=== PATIENT | male | born 1945 | race Caucasian/White ===

== ENCOUNTER 2016-06-26 10:14 | Emergency (ER) | payer MEDICARE ==
[~2016-06-26] VITALS: Ht 165.1 cm; Wt 70.0 kg
[2016-06-26 10:16] VITALS: BP 174/94; PULSE 88; RESP 17; TEMP 98.2; O2SAT 95
[2016-06-26] MEDS ORDERED: PRIL20CA9 PO (13:17)
--- NOTE | 2016-06-26 13:22 | PD ---
HPI Chief Complaint: GI Complaint Time Seen by Provider: 13:08 Travel History International Travel<30 days: No Contact w/Intl Traveler<30days: No Traveled to known affect area: No History of Present Illness HPI This is a 70-year-old male who presents for evaluation. He reports that for 4 years he has had some dysphagia symptoms. He reports that sometimes when he swallows, particularly large food boluses, it feels like they get stuck in his upper abdomen and he sometimes regurgitates it. This primarily happens with solid foods such as meat products. He does not have this problem with more thinner watery type of foods. He reports that his girlfriend encouraged him to come for evaluation of this issue. He does also endorse an occasional bulging in the upper abdomen when he is bearing down. He is concerned that he may have a hernia. He denies any abdominal pain, nausea, chest pain or shortness of breath. He denies any acute problems. He has no primary care physician at this time. [facility] Past Medical History Medical History: Denies Significant Hx Social History Alcohol Use: Yes (DRINKS 8 BEERS PER MONTH.) Tobacco Use: No Substance Use: No Allergies-Medications (Allergen,Severity, Reaction): Coded Allergies: No Known Allergies (Unverified , 06/26/16) Reported Meds & Prescriptions Reported Meds & Active Scripts Active Review of Systems Except as stated in HPI: all other systems reviewed are Neg Physical Exam Narrative GENERAL: Well-developed well-nourished male in no acute distress SKIN: Warm and dry. HEAD: Atraumatic. Normocephalic. EYES: Pupils equal and round. No scleral icterus. No injection or drainage. ENT: No nasal bleeding or discharge. Mucous membranes pink and moist. NECK: Trachea midline. No JVD. CARDIOVASCULAR: Regular rate and rhythm. No murmur appreciated. RESPIRATORY: No accessory muscle use. Clear to auscultation. Breath sounds equal bilaterally. GASTROINTESTINAL: Abdomen soft, non-tender, nondistended. When the patient bears down there appears to be a bulging in the upper abdomen suggesting an abdominal wall hernia which is spontaneously reducing. MUSCULOSKELETAL: No obvious deformities. No edema NEUROLOGICAL: Awake and alert. No obvious cranial nerve deficits. Motor grossly within normal limits. Normal speech. PSYCHIATRIC: Appropriate mood and affect; insight and judgment normal. Data Data Last Documented VS Vital Signs Date Time Temp Pulse Resp B/P Pulse Ox O2 Delivery O2 Flow Rate FiO2 06/26/16 10:16 98.2 88 17 174/94 95 MDM Medical Decision Making Medical Screen Exam Complete: Yes Emergency Medical Condition: Yes Medical Record Reviewed: Yes Differential Diagnosis Esophageal web, stricture, carcinoma, hiatal hernia, abdominal wall hernia Narrative Course This is a 70-year-old male who for 4 years has been experiencing some difficulty swallowing large food boluses such as chunks of meat. Denies any acute problems. Physical examination is benign. He is currently able to swallow his secretions. He does appear to have a probable abdominal wall hernia that spontaneously reduces when he lies down. It is not incarcerated. No emergent workup is indicated at this time. He is encouraged to follow up with a primary care physician, gastric urologist as he will likely require outpatient endoscopy to further characterize this issue. He is also requesting a refill of his Prilosec. He is stable for discharge. Diagnosis Primary Impression: Dysphagia Qualified Code: R13.10 - Dysphagia, unspecified type Referrals: Lizzie Roque MD Primary Care Physician Additional Instructions: Follow-up with a primary care physician. Follow-up with a dessert cup machine feeder such as Dr. Roque. Cut your food into small pieces and chew very thoroughly prior to swallowing. Return for any emergent medical conditions. Med/Other Pt SpecificInfo: Prescription(s) given Scripts Omeprazole (Prilosec)20 Mg Cap20 Mg PO DAILY #30 CAP Ref 0 Prov:Orville Hood MD 06/26/16 Disposition: DISCHARGE HOME Condition: Stable Valentin Shaw Jun 26, 2016 13:22
[2016-06-26 13:39] VITALS: BP 168/78
== END 2016-06-26 13:50 | disposition home or self-care (01) ==
LOC: NETRI 10:14
DX: R13.10 Dysphagia, unspecified (principal)
CPT/HCPCS: 99283

== ENCOUNTER 2017-09-03 23:16 | Emergency (ER) | payer MEDICARE ==
[~2017-09-03] VITALS: Ht 175.3 cm; Wt 80.0 kg
[~2017-09-03 23:16] MED LIST: PRIL20CA9 PO
[2017-09-04 00:03] VITALS: BP 158/84; PULSE 98; RESP 18; TEMP 97.8; O2SAT 96
--- NOTE | 2017-09-04 00:49 | PD ---
HPI Chief Complaint: Complaint Time Seen by Provider: 00:28 Travel History International Travel<30 days: No Contact w/Intl Traveler<30days: No Traveled to known affect area: No History of Present Illness HPI The patient is a 72-year-old male who presents to the emergency department for inability to urinate. The patient states he was last able to urinate approximately 2 PM. He does complain of some abdominal distention and abdominal discomfort associated with the inability to urinate. He does have a history of nocturia, he gets up approximately 5-6 times nightly to urinate. However, he denies any known history of BPH. He denies any associated dysuria. He denies any fever, chills, sweats, nausea, vomiting, or upper abdominal pain. Symptoms are moderate. PFSH Past Medical History Medical History: Denies Significant Hx Tetanus Vaccination: Unknown Influenza Vaccination: Yes Past Surgical History Surgical History: No Previous Surgery Social History Alcohol Use: Yes Tobacco Use: No Substance Use: No Allergies-Medications (Allergen,Severity, Reaction): Coded Allergies: No Known Allergies (Unverified , 06/26/16) Reported Meds & Prescriptions Reported Meds & Active Scripts Active Prilosec (Omeprazole) 20 Mg Cap 20 Mg PO DAILY Review of Systems Except as stated in HPI: all other systems reviewed are Neg Cardiovascular: No: Chest Pain or Discomfort Respiratory: No: Shortness of Breath Gastrointestinal: No: Nausea, Vomiting, Abdominal Pain Genitourinary: Positive: Nocturia, Decreased Urinary Output, No: Dysuria, Pelvic Pain Skin: No Rash Physical Exam Narrative GENERAL: Awake, alert, pleasant 72-year-old male who appears his stated age and is in no acute respiratory distress. SKIN: Focused skin assessment warm/dry. HEAD: Atraumatic. Normocephalic. EYES: No injection or drainage. GASTROINTESTINAL: Abdomen soft, distended bladder to the umbilicus. Back: No CVA tenderness. MUSCULOSKELETAL: No obvious deformities. No clubbing. No cyanosis. No edema. NEUROLOGICAL: Awake and alert. No obvious cranial nerve deficits. Motor grossly within normal limits. Normal speech. PSYCHIATRIC: Appropriate mood and affect; insight and judgment normal. Data Data Last Documented VS Vital Signs Date Time Temp Pulse Resp B/P (MAP) Pulse Ox O2 Delivery O2 Flow Rate FiO2 09/04/17 00:03 97.8 98 18 158/84 (108) 96 Orders Orders Basic Metabolic Panel (Bmp) (09/04/17 00:28) Urinalysis - C+S If Indicated (09/04/17 00:28) Ed Poc Ultrasound (09/04/17 ) Urinary Catheter Insert/Apply (09/04/17 00:38) Bag, Leg 32oz Sterile Large Ea (09/04/17 00:49) Cath, Leg Strap Ea (09/04/17 00:49) Urine Culture (09/04/17 00:50) Ed Discharge Order (09/04/17 03:05) Tamsulosin (Flomax) (09/04/17 03:15) Labs Laboratory Tests Test 09/04/17 00:50 Urine Color YELLOW Urine Turbidity CLEAR Urine pH 5.0 Urine Specific Williams 1.012 Urine Protein NEG mg/dL Urine Glucose (UA) NEG mg/dL Urine Ketones 10 mg/dL Urine Occult Blood NEG Urine Nitrite NEG Urine Bilirubin NEG Urine Urobilinogen LESS THAN 2.0 MG/DL Urine Leukocyte Esterase NEG Urine RBC 1 /hpf Urine WBC 1 /hpf Urine Squamous Epithelial Cells <1 /hpf Urine Bacteria RARE /hpf Urine Hyaline Casts 3 /lpf Urine Mucus FEW /lpf Microscopic Urinalysis Comment CATH-CULTURE IND Blood Urea Nitrogen 12 MG/DL Creatinine 1.29 MG/DL Random Glucose 103 MG/DL Calcium Level 9.0 MG/DL Sodium Level 141 MEQ/L Potassium Level 4.0 MEQ/L Chloride Level 106 MEQ/L Carbon Dioxide Level 16.8 MEQ/L Anion Gap 18 MEQ/L Estimat Glomerular Filtration Rate 55 ML/MIN MDM Medical Decision Making Medical Screen Exam Complete: Yes Emergency Medical Condition: Yes Medical Record Reviewed: Yes Interpretation(s) Laboratory Tests Test 09/04/17 00:50 Urine Color YELLOW Urine Turbidity CLEAR Urine pH 5.0 Urine Specific Williams 1.012 Urine Protein NEG mg/dL Urine Glucose (UA) NEG mg/dL Urine Ketones 10 mg/dL Urine Occult Blood NEG Urine Nitrite NEG Urine Bilirubin NEG Urine Urobilinogen LESS THAN 2.0 MG/DL Urine Leukocyte Esterase NEG Urine RBC 1 /hpf Urine WBC 1 /hpf Urine Squamous Epithelial Cells <1 /hpf Urine Bacteria RARE /hpf Urine Hyaline Casts 3 /lpf Urine Mucus FEW /lpf Microscopic Urinalysis Comment CATH-CULTURE IND Blood Urea Nitrogen 12 MG/DL Creatinine 1.29 MG/DL Random Glucose 103 MG/DL Calcium Level 9.0 MG/DL Sodium Level 141 MEQ/L Potassium Level 4.0 MEQ/L Chloride Level 106 MEQ/L Carbon Dioxide Level 16.8 MEQ/L Anion Gap 18 MEQ/L Estimat Glomerular Filtration Rate 55 ML/MIN Differential Diagnosis Differential diagnosis includes urinary retention, BPH, acute kidney injury, acute renal failure, UTI, obstructive uropathy. Narrative Course A bedside ultrasound was performed which reveals enlarged bladder to the level of the umbilicus. Therefore, a Montez catheter was placed and hung to gravity. A BMP and UA were sent to lab. The patient's BUN and creatinine were within normal limits. UA is unremarkable. The patient had out over 800 cc of clear yellow urine. His symptoms improved. The patient was discharged home with a leg bag attached to the Montez catheter. He was administer Flomax 0.4 mg orally prior to discharge and will be placed on Flomax until he sees urology. Procedures Procedure Narrative A bedside ultrasound was performed using a curvilinear probe which reveals an enlarged bladder. The patient tolerated the procedure without difficulty and there was no obvious complications. Diagnosis Primary Impression: Urinary retention Referrals: Sage Graham MD call for appointment Patient Instructions: General Instructions Additional Instructions: Montez catheter and Flomax as directed. Follow-up with urology. Return if symptoms worsen or progress. Med/Other Pt SpecificInfo: Prescription(s) given Scripts Tamsulosin (Flomax) 0.4 Mg Cap 0.4 MG PO HS for Manage Prostate Problems, #10 CAP 0 Refills Prov: Michael Reed MD 09/04/17 Disposition: DISCHARGE HOME Condition: Stable Michael Reed MD Sep 04, 2017 00:49
[2017-09-04 00:59] LABS: BACTERIA, URINE RARE /hpf; BILIRUBIN, URINE NEG (NEG); BLOOD, URINE NEG (NEG); GLUCOSE,URINE NEG (NEG); HYALINE CAST, URINE 3 /lpf (RARE); KETONE, URINE 10 mg/dL (NEG); MUCUS URINE FEW /lpf (OCC); NITRITE,URINE NEG (NEG); SQUAMOUS EPITHELIAL CELL URINE <1 /hpf (0-5); URINE COLOR YELLOW (YELLW/STRAW); URINE LEUKOCYTE ESTERASE NEG (NEG)
[2017-09-04 01:15] LABS: BICARBONATE 16.8 MEQ/L (21.0-32.0); CREATININE 1.29 MG/DL (0.60-1.30)
[2017-09-04] MEDS ORDERED: TAMS5CAP PO (03:08)
[2017-09-04] MEDS ORDERED: TAMSULOSIN HCL 0.4 MG CAP PO ONE (03:15)
== END 2017-09-04 03:32 | disposition home or self-care (01) ==
LOC: NEPE 23:16
DX: R33.9 Retention of urine, unspecified (principal)
CPT/HCPCS: 51702; 80048; 81001; 87086

== ENCOUNTER 2018-01-27 12:13 | Inpatient (IN) ==
--- NOTE | 2018-01-27 12:32 | ED ---
HPI General Chief Complaint: Neuro Symptoms/Deficit Stated Complaint: cardiac/evac Time Seen by Provider: 01/27/18 12:22 Source: patient and EMS Mode of arrival: EMS Limitations: no limitations History of Present Illness HPI Narrative: Patient is a 72-year-old male presenting to the emergency department for evaluation of left-sided weakness. 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 Patient also feels that his speech is different. He denies any chest pain, shortness of breath, headache, dizziness, nausea, vomiting. He denies any significant past medical history. Symptom onset is unknown, symptoms are moderate. He further denies any visual changes. Onset (ago): hour(s) Time: 05:00 Location: Reports left face, left arm and left leg History of same: No Severity: moderate Quality: Reports weak Relieving factors: none Exacerbating factors: none Context: Reports other (woke up with symptoms) On Anticoagulants: No Associated symptoms: Reports denies other symptoms Treatments Prior to Arrival: Reports none Related Data Home Medications Medication Instructions Recorded Confirmed ranitidine HCl [Zantac] 150 mg PO DAILY 01/27/18 01/27/18 Allergies Allergy/AdvReac Type Severity Reaction Status Date / Time No Known Allergies Allergy Uncoded 06/26/16 13:16 Review of Systems ROS: all other systems reviewed are negative PMFSH Medical History Medical History Heartburn (Chronic) Social History Social History Substance History: No History of Abuse Second Hand Smoke Exposure: No Smoking Status: Never smoker How Often Do You Have a Drink Containing Alcohol: Never Exam Narrative Exam Narrative: GENERAL: Well-developed, well-nourished, alert elderly male. Presenting in no acute distress. SKIN: Focused skin assessment warm/dry. HEAD: Atraumatic. Normocephalic. EYES: Pupils equal and round. No scleral icterus. No injection or drainage. ENT: No nasal bleeding or discharge. Mucous membranes pink and moist. NECK: Trachea midline. No JVD. CARDIOVASCULAR: Regular rate and rhythm. No murmur appreciated. RESPIRATORY: No accessory muscle use. Clear to auscultation. Breath sounds equal bilaterally. GASTROINTESTINAL: Abdomen soft, non-tender, nondistended. Hepatic and splenic margins not palpable. MUSCULOSKELETAL: No obvious deformities. No clubbing. No cyanosis. No edema. NEUROLOGICAL: Awake and alert. Pronator drift noted on the left, slight facial droop on the left, 1 out of 5 waiter waitress strength on the left upper, 5 out of 5 on the right upper. 5 out of 5 strength in the right lower, 4 out of 5 on the left lower. PSYCHIATRIC: Appropriate mood and affect; insight and judgment normal. Course Initial Documented Vital Signs Pulse Oximetry 98 01/27/18 12:23 Last Documented Vital Signs Temperature 98.5 F 01/27/18 12:24 Pulse Rate 64 01/27/18 17:00 Respiratory Rate 18 01/27/18 17:00 Blood Pressure 178/84 H 01/27/18 17:00 Pulse Oximetry 98 01/27/18 17:00 NIH Stroke Scale NIH Stroke Scale Level of Consciousness: 0-Alert Orientation Questions: 0-Answers both correct Responds to Commands: 0-Both tasks correct Gaze Eye Movement: 0-Horizontal movement WNL Facial Movement: 1-Minor facial palsy Motor Functions Arm LEFT: 2-Falls before 10 seconds Motor Functions Arm RIGHT: 0-No drift Motor Functions Leg LEFT: 2-Falls before 5 seconds Motor Functions Leg RIGHT: 0-No drift Best Language: 0-Normal Articulation: 0-Normal Total: 5 Medical Decision Making MDM Narrative Medical decision making narrative: Patient presented with left-sided weakness that he woke up with a 5 AM this morning. Labs and imaging ordered and pending. Patient is hypertensive on arrival, he has no history of hypertension. Labs reviewed, no acute findings. Initial CT of the brain shows a right frontoparietal questionable hemorrhage no greater than 3 mm. Initially discussed findings with Dr. Yan, neurosurgery. He recommended MRI of the brain, sed and CRP. Possible abscess or tumor. MRI, MRA of the head and neck ordered. MRI resulted with an infarct in the right MCA. Reviewed by Dr. Yan. This was discussed with Dr. Barragan, neurology who recommended head of bed be laid flat and patient be given 325 mg of aspirin. Consult placed to neurology. Patient and were advised on findings. Patient has been resting comfortably. Patient will be admitted to [facility]. Dr. Hardin accepted admission. Orders placed. Medical Screen Exam Complete: Yes Emergency Medical Condition: Yes Differential Diagnosis Differential Diagnosis: CVA versus Oglesby's palsy versus metabolic abnormality versus cardiac arrhythmia versus other Medical Records Medical records reviewed: Yes I reviewed the patient's medical records. Lab Data Lab results reviewed: Yes I reviewed the patient's lab results. Result diagrams: 01/27/18 14:39 01/27/18 14:39 Lab Results 01/27/18 01/27/18 01/27/18 Range/Units 12:39 14:00 14:00 WBC (4.0-11.0) th/mm3 RBC (4.50-5.90) mil/mm3 Hgb (13.0-17.0) gm/dL Hct (39.0-51.0) % MCV (80.0-100.0) fL MCH (27.0-34.0) pg MCHC (32.0-36.0) % RDW (11.6-17.2) % Plt Count (150-450) th/mm3 MPV (7.0-11.0) fL Prelim Diff (Auto) Neut % (Auto) (16.0-70.0) % Lymph % (Auto) (9.0-44.0) % [place] % (Auto) (0.0-8.0) % Eos % (Auto) (0.0-4.0) % Baso % (Auto) (0.0-2.0) % Neut # (Auto) (1.8-7.7) th/mm3 Lymph # (Auto) (1.0-4.8) th/mm3 [place] # (Auto) (0.0-0.9) th/mm3 Eos # (Auto) (0.0-0.4) th/mm3 Baso # (Auto) (0.0-0.2) th/mm3 WBC Differential Diff Scan Differential Comment ESR 11 (0-20) mm/hr PT (9.8-11.6) sec INR Ratio APTT (24.3-30.1) sec Sodium (136-145) meq/L Potassium (3.5-5.1) meq/L Chloride (98-107) meq/L Carbon Dioxide (21.0-32.0) meq/L Anion Gap (5-15) meq/L BUN (7-18) mg/dL Creatinine (0.60-1.30) mg/dL Estimated GFR (>89) mL/min POC Glucose 122 H (68-110) mg/dl Random Glucose (74-106) mg/dL Calcium (8.5-10.1) mg/dL Total Bilirubin (0.2-1.0) mg/dL AST (15-37) U/L ALT (12-78) U/L Alkaline Phosphatase (45-117) U/L Total Creatine Kinase (39-308) U/L CK-MB (CK-2) (0.5-3.6) ng/mL Troponin I (0.02-0.05) ng/mL C-Reactive Protein Cancelled Total Protein (6.4-8.2) g/dL Albumin (3.4-5.0) g/dL 01/27/18 01/27/18 01/27/18 Range/Units 14:39 14:39 14:39 WBC 5.1 (4.0-11.0) th/mm3 RBC 4.39 L (4.50-5.90) mil/mm3 Hgb 14.4 (13.0-17.0) gm/dL Hct 41.5 (39.0-51.0) % MCV 94.5 (80.0-100.0) fL MCH 32.8 (27.0-34.0) pg MCHC 34.7 (32.0-36.0) % RDW 13.2 (11.6-17.2) % Plt Count 132 L (150-450) th/mm3 MPV 8.6 (7.0-11.0) fL Prelim Diff (Auto) Slide review pending Neut % (Auto) 68.3 (16.0-70.0) % Lymph % (Auto) 22.8 (9.0-44.0) % [place] % (Auto) 7.7 (0.0-8.0) % Eos % (Auto) 1.0 (0.0-4.0) % Baso % (Auto) 0.2 (0.0-2.0) % Neut # (Auto) 3.5 (1.8-7.7) th/mm3 Lymph # (Auto) 1.2 (1.0-4.8) th/mm3 [place] # (Auto) 0.4 (0.0-0.9) th/mm3 Eos # (Auto) 0.1 (0.0-0.4) th/mm3 Baso # (Auto) 0.0 (0.0-0.2) th/mm3 WBC Differential . Diff Scan Auto diff confirmed Differential Comment . ESR (0-20) mm/hr PT 10.5 (9.8-11.6) sec INR 1.0 Ratio APTT 22.4 L (24.3-30.1) sec Sodium 145 (136-145) meq/L Potassium 4.3 (3.5-5.1) meq/L Chloride 111 H (98-107) meq/L Carbon Dioxide 27.8 (21.0-32.0) meq/L Anion Gap 6 (5-15) meq/L BUN 10 (7-18) mg/dL Creatinine 1.24 (0.60-1.30) mg/dL Estimated GFR 57 L (>89) mL/min POC Glucose (68-110) mg/dl Random Glucose 87 (74-106) mg/dL Calcium 8.2 L (8.5-10.1) mg/dL Total Bilirubin 0.4 (0.2-1.0) mg/dL AST 30 (15-37) U/L ALT 32 (12-78) U/L Alkaline Phosphatase 135 H (45-117) U/L Total Creatine Kinase 155 (39-308) U/L CK-MB (CK-2) 1.9 (0.5-3.6) ng/mL Troponin I Less than 0.02 L (0.02-0.05) ng/mL C-Reactive Protein Less than 0.29 Total Protein 7.2 (6.4-8.2) g/dL Albumin 3.4 (3.4-5.0) g/dL Imaging Data Radiologist's impression: Chest X-Ray 01/27/18 12:23 CONCLUSION: No acute cardiopulmonary abnormality is identified. Head CT 01/27/18 12:23 CONCLUSION: Questionable 3 mm focal area of hemorrhage in the high right frontoparietal region, (best seen on image 27). Otherwise diffuse atrophy. Suggest follow-up noncontrasted CT in one day . Head MRI 01/27/18 14:20 CONCLUSION: 1. Linear infarct right MCA distribution as above without mass effect, hemorrhage or midline shift. 2. There is mild chronic white matter ischemic change. Head MRA 01/27/18 14:20 CONCLUSION: 1. 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 Neck MRA 01/27/18 14:20 CONCLUSION: 1. Mild plaque at the carotid bifurcations bilaterally with mild smooth narrowing at the carotid bulb. CTA carotids otherwise unremarkable. Both vertebral arteries are patent within the neck and similar size. Percent stenosis is calculated using the diameter of the stenotic region over the diameter of the normal distal internal carotid artery Cervical Spine MRI 01/27/18 15:26 CONCLUSION: 1. Degenerative disc disease at C5-6. No evidence of fracture or malalignment Discharge Plan Discharge Disposition Patient Disposition: 30 Still Patient Discharge Condition Condition: Critical Discharge Details Diagnosis: Acute CVA (cerebrovascular accident) Physicians Team ED Provider: Vazquez Abreu ED Midlevel Provider: Bonita Galeana Primary Care Provider: Sachin Russo Attending Provider: Nathaniel Hardin Other Providers: Flora Polanco Status ED Status: Admitted Patient
--- NOTE | 2018-01-27 12:43 | XR ---
EXAM DATE: 01/27/2018 12:35 PM EDT AGE/SEX: 72 years / Male INDICATIONS: Shortness of breath, left arm and face numbness. CLINICAL DATA: This is the patient's initial encounter. Patient reports that signs and symptoms have been present for 1 day and indicates a pain score of 0/10. MEDICAL/SURGICAL HISTORY: None. None. COMPARISON: No prior exams available for comparison. FINDINGS: Portable AP view of the chest demonstrates a normal-sized cardiac silhouette. No effusion, consolidat ion, or pneumothorax is identified. The bones and soft tissues demonstrate no acute finding. EKG line s overlie the patient. CONCLUSION: No acute cardiopulmonary abnormality is identified. Electronically signed by: Sachin Feliz MD 01/27/2018 12:42 PM EDT
--- NOTE | 2018-01-27 13:50 | CT ---
EXAM DATE: 01/27/2018 1:45 PM EDT AGE/SEX: 72 years / Male INDICATIONS: Left hand weakness CLINICAL DATA: This is the patient's initial encounter. Patient reports that signs and symptoms have been present for 1 day and indicates a pain score of 0/10. MEDICAL/SURGICAL HISTORY: None. None. RADIATION DOSE: 56.35 CTDI (mGy) COMPARISON: No prior exams available for comparison. TECHNIQUE: CT of the head without contrast. Using automated exposure control and adjustment of the mA and/or kV according to patient size, radiation dose was kept as low as reasonably achievable to ob tain optimal diagnostic quality images. DICOM format image data is available electronically for revi ew and comparison. FINDINGS: Cerebrum: On image #27 in the high right frontoparietal region there is a questionable small area of hemorrhage measuring no greater than 3 mm. May be volume averaging with the adjacent falx. There armendariz s appear to be some mild diffuse atrophy present diffusely. No subarachnoid or subdural hematoma is i dentified. Bone windows are negative. Posterior Fossa: The cerebellum and brainstem are intact. The 4th ventricle is midline. The cerebe llopontine angle is unremarkable. Extracranial: The visualized portion of the orbits is intact. Skull: The calvaria is intact. No evidence of skull fracture. Minimal maxillary sinus disease CONCLUSION: Questionable 3 mm focal area of hemorrhage in the high right frontoparietal region, (best seen on deirdre ge 27). Otherwise diffuse atrophy. Suggest follow-up noncontrasted CT in one day . Electronically signed by: Chad Renee MD 01/27/2018 1:48 PM EDT
[2018-01-27 15:44] LABS: Baso % (Auto) 0.2 % (0.0-2.0); Eos # (Auto) 0.1 th/mm3 (0.0-0.4); Hematocrit 41.5 % (39.0-51.0); Hemoglobin 14.4 gm/dL (13.0-17.0); Lymph # (Auto) 1.2 th/mm3 (1.0-4.8); Lymph % (Auto) 22.8 % (9.0-44.0); Mean Corpuscular HGB Conc 34.7 % (32.0-36.0); Mean Corpuscular Hemoglobin 32.8 pg (27.0-34.0); Mean Corpuscular Volume 94.5 fL (80.0-100.0); Mean Platelet Volume 8.6 fL (7.0-11.0); Mono # (Auto) 0.4 th/mm3 (0.0-0.9); Mono % (Auto) 7.7 % (0.0-8.0); Neut # (Auto) 3.5 th/mm3 (1.8-7.7); Neut % (Auto) 68.3 % (16.0-70.0); Platelet Count 132 th/mm3 (150-450); Red Blood Count 4.39 mil/mm3 (4.50-5.90); Red Cell Distribution Width 13.2 % (11.6-17.2); White Blood Count 5.1 th/mm3 (4.0-11.0)
[2018-01-27 15:54] LABS: Albumin 3.4 g/dL (3.4-5.0); Anion Gap 6 meq/L (5-15); Aspartate Aminotransferase 30 U/L (15-37); Blood Urea Nitrogen 10 mg/dL (7-18); Calcium 8.2 mg/dL (8.5-10.1); Carbon Dioxide 27.8 meq/L (21.0-32.0); Chloride 111 meq/L (98-107); Glomerular Filtration Rate 57 mL/min (>89); Glucose,Random 87 mg/dL (74-106); Sodium 145 meq/L (136-145)
[2018-01-27 15:55] LABS: Alanine Aminotransferase 32 U/L (12-78); Alkaline Phosphatase 135 U/L (45-117); Creatine Kinase 155 U/L (39-308); Total Protein 7.2 g/dL (6.4-8.2)
[2018-01-27 15:56] LABS: Activated Partial Thrombo Time 22.4 sec (24.3-30.1); Potassium 4.3 meq/L (3.5-5.1); Prothrombin Time 10.5 sec (9.8-11.6)
[2018-01-27 16:08] LABS: Creatine Kinase MB 1.9 ng/mL (0.5-3.6)
[2018-01-27] MEDS ORDERED: Gadobutrol PF 10 MMOL/10 ML Vial (for RAD) IV.SIG ONE (16:39)
--- NOTE | 2018-01-27 17:35 | MR ---
EXAM DATE: 01/27/2018 5:29 PM EDT AGE/SEX: 72 years / Male INDICATIONS: Weakness. Left facial numbness. Left arm tingling and weakness. CLINICAL DATA: This is the patient's initial encounter. Patient reports that signs and symptoms have been present for 1 day and indicates a pain score of 0/10. MEDICAL/SURGICAL HISTORY: None. None. COMPARISON: [facility], MRA NECK W CONTRAST, 01/27/2018. . TECHNIQUE: Multiplanar, multisequence MRI examination of the cervical spine was performed without an d with 10cc ml Gadavist (gadobutrol) contrast as a single exam dose. FINDINGS: Vertebrae: Normal vertebral body height. Homogeneous marrow signal. Intervertebral disc space narro wing at the C5-6 level Alignment: Normal. Cord: Normal configuration and signal. Post Fossa: The cerebellar tonsils are normal in position. Post Contrast: No abnormal areas of enhancement are seen. C2-C3: The thecal sac has a normal configuration. There is no evidence of disc herniation or spinal canal stenosis. The neural foramina are patent bilaterally. C3-C4: The thecal sac has a normal configuration. There is no evidence of disc herniation or spinal canal stenosis. The neural foramina are patent bilaterally. C4-C5: The thecal sac has a normal configuration. There is no evidence of disc herniation or spinal canal stenosis. The neural foramina are patent bilaterally. C5-C6: The thecal sac is slightly narrowed. There is a broad-based diffuse annular bulge without mas s effect upon the cord. The neural foramina are patent bilaterally. C6-C7: The thecal sac has a normal configuration. There is no evidence of disc herniation or spinal canal stenosis. The neural foramina are patent bilaterally. C7-T1: No epidural impressions seen. CONCLUSION: 1. Degenerative disc disease at C5-6. No evidence of fracture or malalignment Electronically signed by: Chad Renee MD 01/27/2018 5:34 PM EDT
--- NOTE | 2018-01-27 17:38 | MR ---
EXAM DATE: 01/27/2018 5:29 PM EDT AGE/SEX: 72 years / Male INDICATIONS: Left sided weakness. Left facial numbness. Left arm tingling and weakness. CLINICAL DATA: This is the patient's initial encounter. Patient reports that signs and symptoms have been present for 1 day and indicates a pain score of 0/10. MEDICAL/SURGICAL HISTORY: None. None. COMPARISON: No prior exams available for comparison. TECHNIQUE: Multiplanar, multisequence examination of the brain was performed without and with 10cc ml Gadavist (gadobutrol) contrast as a single exam dose. FINDINGS: There is a linear infarct in the right MCA distribution extending over a length of about 3.6 cm and s hort axis diameter of around 1 cm. This involves the motor cortex. There is no associated hemorrhage, mass effect or midline shift. No hydrocephalus. There are mild chronic appearing white matter ischemic changes. There is some cortical volume loss. No abnormal extra-axial fluid collections are noted small retention cyst right maxillary sinus. Postcontrast no abnormal enhancing lesions are identified. CONCLUSION: 1. Linear infarct right MCA distribution as above without mass effect, hemorrhage or midline shift. 2. There is mild chronic white matter ischemic change. Electronically signed by: Asa López MD 01/27/2018 5:37 PM EDT
--- NOTE | 2018-01-27 17:41 | MR ---
EXAM DATE: 01/27/2018 5:29 PM EDT AGE/SEX: 72 years / Male INDICATIONS: Left sided weakness. Left facial numbness. Left arm tingling and weakness. CLINICAL DATA: This is the patient's initial encounter. Patient reports that signs and symptoms have been present for 1 day and indicates a pain score of 0/10. MEDICAL/SURGICAL HISTORY: None. None. [place] [facility] [place]/27/[place]. . TECHNIQUE: 3D [id number] MRA was performed. Source images, multiplanar STS MIP, and 3D volum e MIP reconstructions were reviewed. FINDINGS: There is excellent visualization of the major intracranial arteries out to the second-order branch ve ssels. There is no evidence for aneurysm, and no evidence for vascular malformation. There is marked narrowing of suspect on a congenital basis involving the distal right vertebral arter y. The left vertebral artery is dominant. There is a left posterior communicating artery which supplies majority of the flow to the left assistant secretary ior cerebral circulation. No aneurysm is identified. The middle cerebral arteries are symmetric. The A1 segment on the left is not identified. CONCLUSION: 1. 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 Electronically signed by: Chad Renee MD 01/27/2018 5:39 PM EDT
--- NOTE | 2018-01-27 17:42 | MR ---
EXAM DATE: 01/27/2018 5:29 PM EDT AGE/SEX: 72 years / Male INDICATIONS: Weakness. Left facial numbness. Left arm tingling and weakness. CLINICAL DATA: This is the patient's initial encounter. Patient reports that signs and symptoms have been present for 1 day and indicates a pain score of 0/10. MEDICAL/SURGICAL HISTORY: None. None. COMPARISON: No prior exams available for comparison. TECHNIQUE: 10cc ml Gadavist (gadobutrol) contrast infused MRA (single exam dose) of the extracrania l circulation was performed using a neurovascular coil. Postprocessing was performed, including rota ting sub-volume maximum intensity projections of each carotid artery, rotating full-volume maximum in tensity projections of both carotid arteries, sagittal and coronal sliding thin-slab reformations of each carotid artery, and left oblique sliding thin-slab reformation through the aortic arch to includ e the origin of the arch branch vessels. FINDINGS: Aortic Arch : There is a three-vessel origin of the great vessels from the aorta. No evidence of o stial narrowing. Right Carotid : The common carotid artery is intact. Mild plaque formation at the bifurcation with m ild narrowing, without hemodynamically significant stenosis. The internal carotid artery lumen is smo oth without stenosis. The external carotid artery is intact. Left Carotid : The common carotid artery is intact. Mild plaque narrowing without hemodynamically si gnificant stenosis. The internal carotid artery lumen is smooth without stenosis. The external carot id artery is intact. Vertebrals : The vertebral arteries have a symmetric diameter. No stenotic lesions are seen. CONCLUSION: 1. Mild plaque at the carotid bifurcations bilaterally with mild smooth narrowing at the carotid bul b. CTA carotids otherwise unremarkable. Both vertebral arteries are patent within the neck and simila r size. Percent stenosis is calculated using the diameter of the stenotic region over the diameter of the nor mal distal internal carotid artery Electronically signed by: Asa López MD 01/27/2018 5:41 EDT
--- NOTE | 2018-01-27 17:53 | P.CONNS ---
History of Present Illness Primary Care Provider: Sachin Russo MD Chief Complaint: L hand weakness History of Present Illness: 72yoM who woke up this morning unable to use his hand, stating it feels "very heavy". He is able to raise his shoulder but cannot make his elbow down to hand work very well. CT suggested some hyperdensity near left hand knob ( frontoparietal junction) prompting MRI Brain, MRA head/neck, MRI C-spine, showing diffusion restriction left motor cortex in the hand area, consistent with his exam. MRI C-spine showing only DJD. PMFSH - History History Provided By: Patient - Medical History Medical History: Medical History (Last Reviewed 01/27/18 @ 12:29 by ELZA Rey) Heartburn - Tobacco History Second Hand Smoke Exposure: No Smoking Status: Never smoker - Alcohol History How Often Do You Have a Drink Containing Alcohol: Never - Substance Use History Substance History: No History of Abuse - Immunization History Tetanus Immunization: Unsure Medications and Allergies Active Medications: Active Medications Sodium Chloride (Ns Flush) 2 ml IV.FLUSH PRN PRN PRN Reason: FLUSH AFTER USING IV ACCESS Allergies Allergy/AdvReac Type Severity Reaction Status Date / Time No Known Allergies Allergy Uncoded 06/26/16 13:16 Home Medications Medication Instructions Recorded Confirmed Type ranitidine HCl [Zantac] 150 mg PO DAILY 01/27/18 01/27/18 History Exam Vital signs: Vital Signs 01/27/18 12:23 01/27/18 12:24 01/27/18 13:27 Temperature 98.5 F Pulse Rate 67 79 Respiratory Rate 18 18 Blood Pressure 204/93 H 153/78 H Pulse Oximetry 98 98 01/27/18 13:58 Temperature Pulse Rate 62 Respiratory Rate 18 Blood Pressure 147/74 H Pulse Oximetry 99 Intake & Output 01/26/18 01/27/18 01/27/18 18:59 06:59 18:59 Weight 63.503 kg Narrative: A&O x 3. Patient gives the history CN II-XII intact (?left upper motor neuron VIIth, but I'm not able to really confirm this) Motor 5/5 RUE and BLE. LUE-- shoulder 5, biceps 4, triceps 4, WE 2, WF 2, hand 0 Results - Laboratory Findings CBC and BMP: 01/27/18 14:39 01/27/18 14:39 Abnormal lab findings: Abnormal Labs 01/27/18 01/27/18 01/27/18 12:39 14:39 14:39 RBC 4.39 L Plt Count 132 L APTT Chloride 111 H Estimated GFR 57 L POC Glucose 122 H Calcium 8.2 L Alkaline Phosphatase 135 H Troponin I Less than 0.02 L 01/27/18 14:39 RBC Plt Count APTT 22.4 L Chloride Estimated GFR POC Glucose Calcium Alkaline Phosphatase Troponin I Assessment and Plan - Plan 72yoM with acute onset left arm weakness on awakening this morning. Imaging consistent with right motor cortex distribution small stroke. ESR/CRP normal not consistent with infection/abscess. Neurology consult -- I believe he is out of the window and dont see anything obvious on his MRA head/neck to treat.
[2018-01-27 18:37] LABS: Bilirubin,Urine Negative (Negative); Clarity,Urine Clear (Clear); Color,Urine Straw (Yellw/Straw); Glucose,Urine (UA) Negative (Negative); Leukocyte Esterase,Urine Negative (Negative); Mucus,Urine Few /lpf (Occasional); Nitrite,Urine Negative (Negative); Specific Gravity,Urine 1.014 (1.002-1.035)
[2018-01-27] MEDS ORDERED: Acetaminophen 325 MG Tablet PO PRN (18:47)
[2018-01-27] MEDS ORDERED: Dextrose 50% in Water 50 ML Vial IV.PUSH PRN (18:53)
[2018-01-27 19:27] LABS: Chol/HDL Ratio 4.46 Ratio
--- NOTE | 2018-01-27 19:56 | P.HPIM ---
History of Present Illness Primary Care Physician: Sachin Russo MD Chief Complaint: L hand weakness History of Present Illness: 72-year-old male with a history of GERD, who presents having woken up at 5 AM with left hand weakness, slurred speech the slurred speech has resolved however the left arm/hand weakness has persisted. Patient denies any chest pain, shortness of breath, nausea, vomiting, fevers, chills. Says he otherwise feels all right. Inpatient Certification: I certify that the inpatient services were ordered in accordance with Medicare regulations governing the order. This includes certification that hospital inpatient services are reasonable and necessary and in the case of services not specified as inpatient-only under 42 CFR 419.22(n), that they are appropriately provided as inpatient services in accordance to with the 2-midnight benchmark under 43 CFR 412.3(e) Estimated Total Length of Stay (Days): 2 Plans for Post Hospital Care: Not yet determined Review of Systems All other systems reviewed negative except as stated in HPI PMFSH - History History Provided By: Patient - Medical / Surgical Hx Neg / Unobtainable Surgical History: No Previous Surgery - Medical History Medical History: Medical History (Last Reviewed 01/27/18 @ 19:48 by Josef Pratt MD) Heartburn - Family History Family History: Family History (Last Updated 01/27/18 @ 19:48 by Josef Pratt MD) Other Adopted - Tobacco History Second Hand Smoke Exposure: No Smoking Status: Never smoker - Alcohol History How Often Do You Have a Drink Containing Alcohol: Never - Substance Use History Substance History: No History of Abuse - Immunization History Tetanus Immunization: Unsure Medications and Allergies Active Medications: Active Medications Acetaminophen (Tylenol) 650 mg PO Q4H PRN PRN Reason: Temp > 100.4, pain 3-10 Dextrose (D50w Vial) 50 ml IV.PUSH UNSCH PRN PRN Reason: PER HYPOGLYCEMIA PROTOCOL Enoxaparin Sodium (Lovenox Inj) 30 mg SQ Q24H LEI Famotidine (Pepcid) 20 mg PO DAILY LEI Glucagon (Glucagon Inj) 1 mg OTHER PRN PRN PRN Reason: for Hypoglycemia Protocol Sodium Chloride (Ns Inj) 1,000 mls @ 75 mls/hr IV.CONT .[id number] LEI Insulin Aspart (Novolog Insulin Correctional Sugar Inj) 0 unit SQ Q6HR LEI; Protocol Sodium Chloride (Ns Flush) 2 ml IV.FLUSH PRN PRN PRN Reason: FLUSH AFTER USING IV ACCESS Allergies Allergy/AdvReac Type Severity Reaction Status Date / Time No Known Allergies Allergy Uncoded 06/26/16 13:16 Home Medications Medication Instructions Recorded Confirmed Type ranitidine HCl [Zantac] 150 mg PO DAILY 01/27/18 01/27/18 History Exam Vital signs: Vital Signs 01/27/18 12:23 01/27/18 12:24 01/27/18 13:27 Temperature 98.5 F Pulse Rate 67 79 Respiratory Rate 18 18 Blood Pressure 204/93 H 153/78 H Pulse Oximetry 98 98 01/27/18 13:58 01/27/18 17:00 Temperature Pulse Rate 62 64 Respiratory Rate 18 18 Blood Pressure 147/74 H 178/84 H Pulse Oximetry 99 98 Intake & Output 01/27/18 01/27/18 01/28/18 06:59 18:59 06:59 Weight 63.503 kg Narrative: GENERAL: Patient sitting up in bed. Appears comfortable. Alert and oriented x3. SKIN: Warm and dry. HEAD: Atraumatic. Normocephalic. EYES: Pupils equal and round. No scleral icterus. No injection or drainage. ENT: No nasal bleeding or discharge. Mucous membranes pink and moist. NECK: Trachea midline. No JVD. CARDIOVASCULAR: Regular rate and rhythm. RESPIRATORY: No accessory muscle use. Clear to auscultation. Breath sounds equal bilaterally. GASTROINTESTINAL: Abdomen soft, non-tender, nondistended. Hepatic and splenic margins not palpable. MUSCULOSKELETAL: Extremities without clubbing, cyanosis, or edema. No obvious deformities. NEUROLOGICAL: Awake and alert. No obvious cranial nerve deficits. Left upper extremity absent machine engraver strength, however proximal strength 4 out of 5. 5 of 5 strength on the right upper extremity. Left lower extremity with 4 out of 5 strength, right lower extremity 5 out of 5 strength. PSYCHIATRIC: Appropriate mood and affect; insight and judgment normal. Results - Labs CBC & Chem 7: 01/27/18 14:39 01/27/18 14:39 Labs: Short CBC 01/27/18 Range/Units 14:39 WBC 5.1 (4.0-11.0) th/mm3 Hgb 14.4 (13.0-17.0) gm/dL Hct 41.5 (39.0-51.0) % Plt Count 132 L (150-450) th/mm3 BMP 01/27/18 14:39 Sodium 145 Potassium 4.3 Chloride 111 H Carbon Dioxide 27.8 BUN 10 Creatinine 1.24 Calcium 8.2 L Cardiac Enzymes 01/27/18 Range/Units 14:39 Total Creatine Kinase 155 (39-308) U/L CK-MB (CK-2) 1.9 (0.5-3.6) ng/mL Troponin I Less than 0.02 L (0.02-0.05) ng/mL Liver Function 01/27/18 Range/Units 14:39 Total Bilirubin 0.4 (0.2-1.0) mg/dL AST 30 (15-37) U/L ALT 32 (12-78) U/L Alkaline Phosphatase 135 H (45-117) U/L Albumin 3.4 (3.4-5.0) g/dL Urine 01/27/18 Range/Units 18:10 Urine Color Straw (Yellw/Straw) Urine Clarity Clear (Clear) Urine pH 6.0 (5.0-8.5) Ur Specific [place] 1.014 (1.002-1.035) Urine Protein Negative (Neg-Trace) mg/dL Urine Glucose (UA) Negative (Negative) mg/dL - Imaging Impressions Chest X-Ray 01/27/18 12:23 CONCLUSION: No acute cardiopulmonary abnormality is identified. Head CT 01/27/18 12:23 CONCLUSION: Questionable 3 mm focal area of hemorrhage in the high right frontoparietal region, (best seen on image 27). Otherwise diffuse atrophy. Suggest follow-up noncontrasted CT in one day . Head MRI 01/27/18 14:20 CONCLUSION: 1. Linear infarct right MCA distribution as above without mass effect, hemorrhage or midline shift. 2. There is mild chronic white matter ischemic change. Head MRA 01/27/18 14:20 CONCLUSION: 1. 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 Neck MRA 01/27/18 14:20 CONCLUSION: 1. Mild plaque at the carotid bifurcations bilaterally with mild smooth narrowing at the carotid bulb. CTA carotids otherwise unremarkable. Both vertebral arteries are patent within the neck and similar size. Percent stenosis is calculated using the diameter of the stenotic region over the diameter of the normal distal internal carotid artery Cervical Spine MRI 01/27/18 15:26 CONCLUSION: 1. Degenerative disc disease at C5-6. No evidence of fracture or malalignment Caprini VTE Risk Assessment Caprini VTE Risk Assessment: Moderate/High Risk (score >= 2) Caprini Risk Assessment Model: Point Value = 1 Point Value = 2 Point Value = 3 Point Value = 5 Age 41-60 Minor surgery BMI > 25 kg/m2 Swollen legs Varicose veins or History of unexplained or recurrent spontaneous Oral contraceptives or hormone replacement Sepsis (< 1 month) Serious lung disease, including pneumonia (< 1 month) Abnormal pulmonary function Acute myocardial infarction Congestive heart failure (< 1 month) History of inflammatory bowel disease Medical patient at bed rest Age 61-74 Arthroscopic surgery Major open surgery (> 45 min) Laparoscopic surgery (> 45 min) Malignancy Confined to bed (> 72 hours) Immobilizing plaster cast Central venous access Age >= 75 History of VTE Family history of VTE Factor V Leiden Prothrombin [id number] Lupus anticoagulant Anticardiolipin antibodies Elevated serum homocysteine Heparin-induced thrombocytopenia Other congenital or acquired thrombophilia Stroke (< 1 month) Elective arthroplasty Hip, pelvis, or leg fracture Acute spinal cord injury (< 1 month) Prophylaxis Regimen: Total Risk Factor Score Risk Level Prophylaxis Regimen 0-1 Low Early ambulation 2 Moderate Order ONE of the following: *Sequential Compression Device (SCD) *Heparin 5000 units SQ BID 3-4 Higher Order ONE of the following medications: *Heparin 5000 units SQ TID *Enoxaparin/Lovenox 40 mg SQ daily (WT < 150 kg, CrCl > 30 mL/min) *Enoxaparin/Lovenox 30 mg SQ daily (WT < 150 kg, CrCl > 10-29 mL/min) *Enoxaparin/Lovenox 30 mg SQ BID (WT < 150 kg, CrCl > 30 mL/min) AND/OR *Sequential Compression Device (SCD) 5 or more Highest Order ONE of the following medications: *Heparin 5000 units SQ TID (Preferred with Epidurals) *Enoxaparin/Lovenox 40 mg SQ daily (WT < 150 kg, CrCl > 30 mL/min) *Enoxaparin/Lovenox 30 mg SQ daily (WT < 150 kg, CrCl > 10-29 mL/min) *Enoxaparin/Lovenox 30 mg SQ BID (WT < 150 kg, CrCl > 30 mL/min) AND *Sequential Compression Device (SCD) Assessment and Plan - Plan //Acute ischemic stroke in the right MCA distribution. MRI with linear infarct right MCA distribution. Mild chronic ischemic change = Degenerative disc disease of cervical spine. Neurosurgery notes that there is no intervening will disease. -Neuro checks. Patient passed bedside swallow. -Echocardiogram pending. -start on aspirin Neurology to be consulted. Telemetry //History of GERD. Continue home medications. Discussed Condition With: Patient, nurse, Dr. Hardin
[2018-01-27] MEDS: Sod Chloride 0.9% Inj 1,000 ML IV.CONT SCH (20:58)
[2018-01-27] MEDS: Enoxaparin Inj 30 MG/0.3 ML Syringe SQ SCH (20:59)
[2018-01-28 00:35] LABS: Amphetamine Screen,Urine Neg (Neg); Barbiturate Screen,Urine Neg (Neg); Cannabinoid Screen,Urine Neg (Neg); Cocaine Screen,Urine Neg (Neg)
[2018-01-28 00:36] LABS: Opiate Screen,Urine Neg (Neg)
[2018-01-28] MEDS: Insulin NovoLOG Aspart Correctional Sugar Inj SQ SCH ×5 (00:55→23:01)
[2018-01-28 05:09] LABS: Baso % (Auto) 0.4 % (0.0-2.0); Eos # (Auto) 0.1 th/mm3 (0.0-0.4); Eos % (Auto) 1.7 % (0.0-4.0); Hematocrit 40.5 % (39.0-51.0); Hemoglobin 13.9 gm/dL (13.0-17.0); Lymph # (Auto) 1.6 th/mm3 (1.0-4.8); Lymph % (Auto) 38.9 % (9.0-44.0); Mean Corpuscular HGB Conc 34.2 % (32.0-36.0); Mean Corpuscular Hemoglobin 32.7 pg (27.0-34.0); Mean Corpuscular Volume 95.6 fL (80.0-100.0); Mean Platelet Volume 8.1 fL (7.0-11.0); Mono # (Auto) 0.4 th/mm3 (0.0-0.9); Mono % (Auto) 9.5 % (0.0-8.0); Neut % (Auto) 49.5 % (16.0-70.0); Platelet Count 123 th/mm3 (150-450); Red Blood Count 4.23 mil/mm3 (4.50-5.90); Red Cell Distribution Width 12.9 % (11.6-17.2); White Blood Count 4.1 th/mm3 (4.0-11.0)
[2018-01-28 05:31] LABS: Anion Gap 8 meq/L (5-15); Aspartate Aminotransferase 25 U/L (15-37); Blood Urea Nitrogen 10 mg/dL (7-18); Calcium 7.9 mg/dL (8.5-10.1); Carbon Dioxide 25.7 meq/L (21.0-32.0); Chloride 110 meq/L (98-107); Glomerular Filtration Rate 66 mL/min (>89); Glucose,Random 85 mg/dL (74-106); Potassium 3.6 meq/L (3.5-5.1); Sodium 144 meq/L (136-145)
[2018-01-28 05:32] LABS: Alanine Aminotransferase 28 U/L (12-78)
[2018-01-28 05:34] LABS: Alkaline Phosphatase 118 U/L (45-117); Total Protein 6.3 g/dL (6.4-8.2)
--- NOTE | 2018-01-28 09:17 | P.PNIM ---
Subjective Interval history: The pt still complained of weakness in his left hand. He denied any numbness or tingling. He wanted to leave the hospital. He said that he normally moves around a lot and is not used to lying in bed. He said he will take an ASA. Discussed with nurse at the bedside. Physical Exam Vital signs: Vital Signs 01/27/18 12:23 01/27/18 12:24 01/27/18 13:27 Temperature 98.5 F Pulse Rate 67 79 Respiratory Rate 18 18 Blood Pressure 204/93 H 153/78 H Pulse Oximetry 98 98 01/27/18 13:58 01/27/18 17:00 01/27/18 20:00 Temperature Pulse Rate 62 64 Respiratory Rate 18 18 Blood Pressure 147/74 H 178/84 H Pulse Oximetry 99 98 98 01/27/18 20:31 01/27/18 21:00 01/27/18 21:05 Temperature Pulse Rate 61 75 63 Respiratory Rate 20 37 H 25 H Blood Pressure 132/73 Pulse Oximetry 97 97 96 01/27/18 22:00 01/27/18 23:00 01/27/18 23:47 Temperature Pulse Rate 58 L 54 L Respiratory Rate 18 19 Blood Pressure Pulse Oximetry 95 96 97 01/28/18 00:00 01/28/18 00:54 01/28/18 01:00 Temperature Pulse Rate 57 L 55 L 56 L Respiratory Rate 19 6 L 19 Blood Pressure 106/60 103/58 L Pulse Oximetry 97 96 93 L 01/28/18 02:00 01/28/18 02:01 01/28/18 03:00 Temperature Pulse Rate 54 L 53 L 54 L Respiratory Rate 18 16 18 Blood Pressure 107/59 L 110/55 L Pulse Oximetry 95 95 95 01/28/18 04:00 01/28/18 05:00 01/28/18 08:57 Temperature Pulse Rate 55 L 54 L Respiratory Rate 18 20 Blood Pressure 114/64 113/59 L Pulse Oximetry 94 L 96 96 Intake & Output 01/27/18 01/28/18 01/28/18 18:59 06:59 18:59 Intake Total 200 / 200 Output Total 200 / 200 Balance 0 / 0 Weight 63.503 kg 63.5 kg Intake: Oral 200 / 200 Output: Urine 200 / 200 Other: Weight On Admission 63.7 kg Narrative: GENERAL: Patient sitting up in bed. Appears comfortable. SKIN: Warm and dry. HEAD: Atraumatic. Normocephalic. EYES: Pupils equal and round. No scleral icterus. No injection or drainage. ENT: No nasal bleeding or discharge. Mucous membranes pink and moist. NECK: Trachea midline. No JVD. CARDIOVASCULAR: Regular rate and rhythm. RESPIRATORY: No accessory muscle use. Clear to auscultation. Breath sounds equal bilaterally. GASTROINTESTINAL: Abdomen soft, non-tender, nondistended. Hepatic and splenic margins not palpable. MUSCULOSKELETAL: Extremities without clubbing, cyanosis, or edema. No obvious deformities. NEUROLOGICAL: Awake and alert. No obvious cranial nerve deficits. Left upper extremity with weakened finishing machine tender strength, however proximal strength 4 out of 5. 5 of 5 strength on the right upper extremity. Left lower extremity with 4 out of 5 strength, right lower extremity 5 out of 5 strength. Results - Labs CBC & Chem 7: 01/28/18 04:33 01/28/18 04:33 Laboratory Results - last 24 hr 01/27/18 01/27/18 01/27/18 12:39 14:00 14:00 WBC RBC Hgb Hct MCV MCH MCHC RDW Plt Count MPV Prelim Diff (Auto) Neut % (Auto) Lymph % (Auto) Johnson % (Auto) Eos % (Auto) Baso % (Auto) Neut # (Auto) Lymph # (Auto) Johnson # (Auto) Eos # (Auto) Baso # (Auto) WBC Differential Diff Scan Differential Comment ESR 11 PT INR APTT Sodium Potassium Chloride Carbon Dioxide Anion Gap BUN Creatinine Estimated GFR POC Glucose 122 H Random Glucose Calcium Total Bilirubin AST ALT Alkaline Phosphatase Total Creatine Kinase CK-MB (CK-2) Troponin I C-Reactive Protein Cancelled Total Protein Albumin Triglycerides Cholesterol LDL Cholesterol, Calc HDL Cholesterol Cholesterol/HDL Ratio Urine Color Urine Clarity Urine pH Ur Specific [place] Urine Protein Urine Glucose (UA) Urine Ketones Urine Occult Blood Urine Nitrate Urine Bilirubin Urine Urobilinogen Ur Leukocyte Esterase Urine Mucus Micro UA Comment Ur Microscopic Review Urine Culture Comments Nasal Screen MRSA (PCR) Urine Opiates Screen Ur Barbiturates Screen Ur Amphetamines Screen U Benzodiazepines Scrn Urine Cocaine Screen U Cannabinoids Screen 01/27/18 01/27/18 01/27/18 14:39 14:39 14:39 WBC 5.1 RBC 4.39 L Hgb 14.4 Hct 41.5 MCV 94.5 MCH 32.8 MCHC 34.7 RDW 13.2 Plt Count 132 L MPV 8.6 Prelim Diff (Auto) Slide review pending Neut % (Auto) 68.3 Lymph % (Auto) 22.8 Johnson % (Auto) 7.7 Eos % (Auto) 1.0 Baso % (Auto) 0.2 Neut # (Auto) 3.5 Lymph # (Auto) 1.2 Johnson # (Auto) 0.4 Eos # (Auto) 0.1 Baso # (Auto) 0.0 WBC Differential . Diff Scan Auto diff confirmed Differential Comment . ESR PT 10.5 INR 1.0 APTT 22.4 L Sodium 145 Potassium 4.3 Chloride 111 H Carbon Dioxide 27.8 Anion Gap 6 BUN 10 Creatinine 1.24 Estimated GFR 57 L POC Glucose Random Glucose 87 Calcium 8.2 L Total Bilirubin 0.4 AST 30 ALT 32 Alkaline Phosphatase 135 H Total Creatine Kinase 155 CK-MB (CK-2) 1.9 Troponin I Less than 0.02 L C-Reactive Protein Less than 0.29 Total Protein 7.2 Albumin 3.4 Triglycerides Cholesterol LDL Cholesterol, Calc HDL Cholesterol Cholesterol/HDL Ratio Urine Color Urine Clarity Urine pH Ur Specific [place] Urine Protein Urine Glucose (UA) Urine Ketones Urine Occult Blood Urine Nitrate Urine Bilirubin Urine Urobilinogen Ur Leukocyte Esterase Urine Mucus Micro UA Comment Ur Microscopic Review Urine Culture Comments Nasal Screen MRSA (PCR) Urine Opiates Screen Ur Barbiturates Screen Ur Amphetamines Screen U Benzodiazepines Scrn Urine Cocaine Screen U Cannabinoids Screen 01/27/18 01/27/18 01/27/18 14:39 18:10 18:10 WBC RBC Hgb Hct MCV MCH MCHC RDW Plt Count MPV Prelim Diff (Auto) Neut % (Auto) Lymph % (Auto) Johnson % (Auto) Eos % (Auto) Baso % (Auto) Neut # (Auto) Lymph # (Auto) Johnson # (Auto) Eos # (Auto) Baso # (Auto) WBC Differential Diff Scan Differential Comment ESR PT INR APTT Sodium Potassium Chloride Carbon Dioxide Anion Gap BUN Creatinine Estimated GFR POC Glucose Random Glucose Calcium Total Bilirubin AST ALT Alkaline Phosphatase Total Creatine Kinase CK-MB (CK-2) Troponin I C-Reactive Protein Total Protein Albumin Triglycerides 197 H Cholesterol 192 LDL Cholesterol, Calc 110 H HDL Cholesterol 43.0 Cholesterol/HDL Ratio 4.46 Urine Color Straw Urine Clarity Clear Urine pH 6.0 Ur Specific [place] 1.014 Urine Protein Negative Urine Glucose (UA) Negative Urine Ketones Trace H Urine Occult Blood Negative Urine Nitrate Negative Urine Bilirubin Negative Urine Urobilinogen Less than 2 Ur Leukocyte Esterase Negative Urine Mucus Few H Micro UA Comment Culture not ind Ur Microscopic Review Not Reportable Urine Culture Comments Culture not ind Nasal Screen MRSA (PCR) Urine Opiates Screen Neg Ur Barbiturates Screen Neg Ur Amphetamines Screen Neg U Benzodiazepines Scrn Neg Urine Cocaine Screen Neg U Cannabinoids Screen Neg 01/27/18 01/28/18 01/28/18 20:00 00:53 04:33 WBC 4.1 RBC 4.23 L Hgb 13.9 Hct 40.5 MCV 95.6 MCH 32.7 MCHC 34.2 RDW 12.9 Plt Count 123 L MPV 8.1 Prelim Diff (Auto) Neut % (Auto) 49.5 Lymph % (Auto) 38.9 Johnson % (Auto) 9.5 H Eos % (Auto) 1.7 Baso % (Auto) 0.4 Neut # (Auto) 2.0 Lymph # (Auto) 1.6 Johnson # (Auto) 0.4 Eos # (Auto) 0.1 Baso # (Auto) 0.0 WBC Differential . Diff Scan Differential Comment Auto diff final ESR PT INR APTT Sodium Potassium Chloride Carbon Dioxide Anion Gap BUN Creatinine Estimated GFR POC Glucose 86 Random Glucose Calcium Total Bilirubin AST ALT Alkaline Phosphatase Total Creatine Kinase CK-MB (CK-2) Troponin I C-Reactive Protein Total Protein Albumin Triglycerides Cholesterol LDL Cholesterol, Calc HDL Cholesterol Cholesterol/HDL Ratio Urine Color Urine Clarity Urine pH Ur Specific [place] Urine Protein Urine Glucose (UA) Urine Ketones Urine Occult Blood Urine Nitrate Urine Bilirubin Urine Urobilinogen Ur Leukocyte Esterase Urine Mucus Micro UA Comment Ur Microscopic Review Urine Culture Comments Nasal Screen MRSA (PCR) Not detected Urine Opiates Screen Ur Barbiturates Screen Ur Amphetamines Screen U Benzodiazepines Scrn Urine Cocaine Screen U Cannabinoids Screen 01/28/18 01/28/18 04:33 05:31 WBC RBC Hgb Hct MCV MCH MCHC RDW Plt Count MPV Prelim Diff (Auto) Neut % (Auto) Lymph % (Auto) Johnson % (Auto) Eos % (Auto) Baso % (Auto) Neut # (Auto) Lymph # (Auto) Johnson # (Auto) Eos # (Auto) Baso # (Auto) WBC Differential Diff Scan Differential Comment ESR PT INR APTT Sodium 144 Potassium 3.6 Chloride 110 H Carbon Dioxide 25.7 Anion Gap 8 BUN 10 Creatinine 1.10 Estimated GFR 66 L POC Glucose 90 Random Glucose 85 Calcium 7.9 L Total Bilirubin 0.7 AST 25 ALT 28 Alkaline Phosphatase 118 H Total Creatine Kinase CK-MB (CK-2) Troponin I C-Reactive Protein Total Protein 6.3 L D Albumin 3.0 L Triglycerides Cholesterol LDL Cholesterol, Calc HDL Cholesterol Cholesterol/HDL Ratio Urine Color Urine Clarity Urine pH Ur Specific [place] Urine Protein Urine Glucose (UA) Urine Ketones Urine Occult Blood Urine Nitrate Urine Bilirubin Urine Urobilinogen Ur Leukocyte Esterase Urine Mucus Micro UA Comment Ur Microscopic Review Urine Culture Comments Nasal Screen MRSA (PCR) Urine Opiates Screen Ur Barbiturates Screen Ur Amphetamines Screen U Benzodiazepines Scrn Urine Cocaine Screen U Cannabinoids Screen - Imaging Impressions Chest X-Ray 01/27/18 12:23 CONCLUSION: No acute cardiopulmonary abnormality is identified. Head CT 01/27/18 12:23 CONCLUSION: Questionable 3 mm focal area of hemorrhage in the high right frontoparietal region, (best seen on image 27). Otherwise diffuse atrophy. Suggest follow-up noncontrasted CT in one day . Head MRI 01/27/18 14:20 CONCLUSION: 1. Linear infarct right MCA distribution as above without mass effect, hemorrhage or midline shift. 2. There is mild chronic white matter ischemic change. Head MRA 01/27/18 14:20 CONCLUSION: 1. 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 Neck MRA 01/27/18 14:20 CONCLUSION: 1. Mild plaque at the carotid bifurcations bilaterally with mild smooth narrowing at the carotid bulb. CTA carotids otherwise unremarkable. Both vertebral arteries are patent within the neck and similar size. Percent stenosis is calculated using the diameter of the stenotic region over the diameter of the normal distal internal carotid artery Cervical Spine MRI 01/27/18 15:26 CONCLUSION: 1. Degenerative disc disease at C5-6. No evidence of fracture or malalignment Assessment and Plan - Plan Acute ischemic stroke in the right MCA distribution MRI with linear infarct right MCA distribution; Mild chronic ischemic change. EKG with sinus rhythm. -Neuro checks. -Echocardiogram pending. -start on aspirin and statin. -check A1c. Neurology consulted. -Telemetry. -PT/OT/ST. -IVFs. -permissive HTN for now. Degenerative disc disease of cervical spine Noted on imaging. -Neurosurgery consult appreciated. No intervention indicated. Anxiety The pt says he wants to leave the hospital because he's not used to lying around. -encouraged the pt to stay, but he may leave AMA. -Ativan as needed. PPx: Lovenox Discharge Planning: Anticipate d/c home in AM. May leave AMA.
[2018-01-28] MEDS ORDERED: LORazepam 0.5 MG Tablet PO PRN (09:18)
[2018-01-28] MEDS: Sod Chloride 0.9% Inj 1,000 ML IV.CONT SCH (13:20)
[2018-01-28] MEDS: Famotidine 20 MG Tablet PO SCH (13:21)
--- NOTE | 2018-01-28 13:21 | MB ---
cc: Flora Polanco MD DATE: 01/28/2018 REASON FOR CONSULTATION: Stroke. HISTORY OF PRESENT ILLNESS: Mr. Marshall is a 72-year-old male with a history of reflux, woke up at 5 o'clock yesterday trying to push up in bed. His left hand was very weak. Questionable slurred speech, but that has now resolved. Still has persistence in the left arm, mostly the hand. Neurology is asked to assess him for stroke. He has a medical history of reflux. FAMILY HISTORY: Unknown. He is adopted. SOCIAL HISTORY: Does not smoke, does not drink. Does not take antiplatelets. PHYSICAL EXAMINATION: VITAL SIGNS: Temperature 98.7, pulse 83, respiratory rate 36, blood pressure 159/82, saturating at 97% on room air. NECK: Supple. No appreciable bruits. HEART: Regular. NEUROLOGIC: He is awake, alert. He is oriented. He is fluent. His pupils react. Visual griffin full. Face symmetrical. Tongue midline. No visual field loss. Motor tinoco, he does exhibit mild weakness in the left arm, at least a 4/5 below the elbow. 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 There is no leg lag. DTRs are brisk on the left. Toes withdraw. Cerebellar normal on the right, slow on the left due to his left arm weakness. IMAGING STUDIES: Cervical spine MRI shows degenerative disease, but nothing acute as far as significant stenosis or cord compression. MRI of the brain shows right MCA infarct. Neck MRA shows mild plaque at the carotid bifurcations bilaterally with smooth narrowing of the bulb. He did have an MRA [place] with some congenital variant an absent left A1, a left posterior communicating artery supplying the majority of the posterior cerebral flow, and very hypoplastic distal vertebral on the right, but no significant stenosis or aneurysm. LABORATORY DATA: Platelets 123,000. Sedimentation rate is 11. Coagulation panel: PTT 22.4. Chemistries: GFR 66, calcium 7.9, alkaline phosphatase 118. CRP less than 0.29, albumin 3. Triglycerides 197, cholesterol 192, LDL 110, HDL 43. Urine: Trace ketones, a few mucus, no MRSA. Toxicology screen negative. IMPRESSION AD PLAN: A 72-year-old male with a right middle cerebral artery territory infarct. Recommend starting him on a baby aspirin and a statin. Can get an echocardiogram, outpatient Holter monitor. Follow up with physical therapy, occupational therapy for the left hand. If they feel that he is stable, therapy can be done as an outpatient. He can go to a normal telemetry bed. Does not need to be in the ICU. Further recommendations will be made accordingly, but if cleared by PT and this can be managed outpatient-tinoco, certainly can be discharged with followup with primary care and neurology outpatient-tinoco. He needs to follow up with his primary care. It seems that he has not been seen in some time. MD TOBY Duran/navin , 12:14 PM , 12:22 PM
--- NOTE | 2018-01-28 15:02 | ECHRPT ---
Indication: Transient cerebral ischemic attack, unspecified CONCLUSIONS Normal left ventricular size and wall thickness. The left ventricular systolic function is normal wi th an estimated ejection fraction in the range of 60-65%. No regional wall motion abnormalities. Calcified aortic valve with trace regurgitation. Trace mitral valve regurgitation There is trace tricuspid valve regurgitation. The estimated pulmonary arterial pressure is 31.9 mmHg. Intra-atrial septum not well interogated by color doppler. BP: / HR: Rhythm: MEASUREMENTS (Male / Female) Normal Values Technical Quality:Good 2D ECHO LV Diastolic Diameter PLAX 3.7 cm 4.2 - 5.9 / 3.9 - 5.3 cm LV Systolic Diameter PLAX 2.6 cm IVS Diastolic Thickness 1.0 cm 0.6 - 1.0 / 0.6 - 0.9 cm LVPW Diastolic Thickness 0.9 cm 0.6 - 1.0 / 0.6 - 0.9 cm LV Relative Wall Thickness 0.5 RV Internal Dim ED PLAX 2.1 cm M-MODE Aortic Root Diameter MM 3.3 cm LA Systolic Diameter MM 3.9 cm LA Ao Ratio MM 1.2 AV Cusp Separation MM 1.2 cm DOPPLER AV Peak Velocity 250.0 cm/s AV Peak Gradient 25.0 mmHg AV Mean Gradient 15.0 mmHg AV Velocity Time Integral 56.0 cm Mitral E Point Velocity 95.2 cm/s Mitral A Point Velocity 85.2 cm/s Mitral E to A Ratio 1.1 TR Peak Velocity 234.0 cm/s TR Peak Gradient 21.9 mmHg Right Atrial Pressure 10.0 mmHg Pulmonary Artery Systolic Pressu 31.9 mmHg Right Ventricular Systolic Press 31.9 mmHg FINDINGS LEFT VENTRICLE Normal left ventricular size and wall thickness. The left ventricular systolic function is normal wi th an estimated ejection fraction in the range of 60-65%. RIGHT VENTRICLE Normal right ventricular size and systolic function. LEFT ATRIUM The left atrial size is normal. RIGHT ATRIUM The right atrial size is normal. ATRIAL SEPTUM Normal atrial septal thickness. AORTA The aortic root and proximal ascending aorta are not well visualized. MITRAL VALVE Structurally normal mitral valve. Trace mitral valve regurgitation. AORTIC VALVE Trace aortic valve regurgitation. Diffuse calcification of the aortic valve. TRICUSPID VALVE Structurally normal tricuspid valve. There is trace tricuspid valve regurgitation. The estimated pulmonary arterial pressure is 31.9 mmHg. PULMONARY VALVE Trivial pulmonary valve regurgitation. VESSELS The inferior vena cava was not well visualized. PERICARDIUM There is no pericardial effusion. Dolly Gomez MD (Electronically Signed) Final Date:28 January 2018 15:01
[2018-01-28 17:06] LABS: Hemoglobin A1c 5.3 % (4.3-6.0)
--- NOTE | 2018-01-28 17:13 | ECG ---
Date Performed: 01/27/2018 Time Performed: 12:43:19 PTAGE: 72 years EKG: Sinus rhythm NONSPECIFIC T-WAVE ABNORMALITY Since previous tracing, no significant change noted BORDERLINE ECG PREVIOUS TRACING : 09/14/2006 01.15 DOCTOR: Dimitrios Crespo Interpretating Date/Time 01/28/2018 17:11:16
[2018-01-28] MEDS: Enoxaparin Inj 30 MG/0.3 ML Syringe SQ SCH (22:57)
[2018-01-29] MEDS: Sod Chloride 0.9% Inj 1,000 ML IV.CONT SCH (01:03)
[2018-01-29] MEDS: Insulin NovoLOG Aspart Correctional Sugar Inj SQ SCH (06:54)
[2018-01-29 08:56] VITALS: BP 161/74; PULSE 57; RESP 18; TEMP 97.5; O2SAT 100
[2018-01-29] MEDS: Famotidine 20 MG Tablet PO SCH (09:44)
[2018-01-29] MEDS ORDERED: Sodium Chloride 0.9% 2 ML Flush PRN IV.FLUSH (10:45)
--- NOTE | 2018-01-29 10:45 | P.DS ---
Date of admission: 01/27/18 18:40 Primary care physician: Sachin Russo MD Brief History from admission: 72-year-old male with a history of GERD, who presents having woken up at 5 AM with left hand weakness, slurred speech the slurred speech has resolved however the left arm/hand weakness has persisted. Patient denies any chest pain, shortness of breath, nausea, vomiting, fevers, chills. Says he otherwise feels all right. Patient update on day of discharge: Patient reports he is feeling great. He states the left hand donor floor technician strength is almost back to normal. He is adamant about going home today. DS: Diagnosis - Discharge Diagnosis (1) Acute CVA (cerebrovascular accident) Status: Acute DS: Medications - Discharge Medications Prescriptions: aspirin 81 mg PO DAILY #30 tab atorvastatin 40 mg PO HS #30 tab DS: Summary Hospital Course: 72-year-old male admitted with acute ischemic stroke in the right MCA distribution. Patient presented with left upper extremity weakness. MRI with linear infarct right MCA distribution; Mild chronic ischemic change. EKG with sinus rhythm. Echo unremarkable. Neurology followed the patient and recommended aspirin. The patient's lipids were elevated and he was started on a statin. He was counseled against using alcohol. Regarding degenerative disc disease of the cervical spine noted on imaging, neurosurgery consulted on the patient and did not recommend any surgical intervention at this time. The patient's symptoms greatly improved with better strength in the left hand. He is discharged home in good condition to follow-up outpatient with his primary care physician. He was counseled on the need to be compliant with medications and follow-up with PCP. - Time Spent with Patient Total time spent providing and/or coordinating discharge services: Less than 30 minutes - Quality: VTE Deep Vein Thrombosis/Pulmonary Embolism Present on Admission: No Exam Vital signs: Vital Signs 01/28/18 11:00 01/28/18 12:00 01/28/18 16:00 Temperature 98.7 F 98.5 F Pulse Rate 83 65 64 Respiratory Rate 36 H 26 H 13 Blood Pressure 155/80 H 127/71 Pulse Oximetry 97 97 97 01/28/18 20:00 01/29/18 00:00 01/29/18 00:30 Temperature 98.3 F 98.0 F Pulse Rate 61 59 L 55 L Respiratory Rate 18 20 Blood Pressure 120/57 L 131/72 Pulse Oximetry 95 98 01/29/18 01:11 01/29/18 04:00 01/29/18 04:30 Temperature 97.9 F Pulse Rate 55 L 76 Respiratory Rate 18 17 Blood Pressure 127/69 Pulse Oximetry 96 01/29/18 08:00 Temperature 97.5 F L Pulse Rate 57 L Respiratory Rate 18 Blood Pressure 161/74 H Pulse Oximetry 100 Intake & Output 01/28/18 01/29/18 01/29/18 18:59 06:59 18:59 Intake Total 1450 / 1450 1000 / 1000 Output Total 650 / 650 200 / 200 300 / 300 Balance 800 / 800 800 / 800 -300 / -300 Intake: IV 1000 / 1000 1000 / 1000 NS Inj 1,000 ML @ 75 mls/hr IV. 1000 / 1000 1000 / 1000 CONT .[id number] LEI Rx#:[id number] Oral 450 / 450 Output: Urine 650 / 650 200 / 200 300 / 300 Other: Date of Last Bowel Movement 01/28/18 Narrative: GENERAL: This is a well-nourished, well-developed patient, in no apparent distress. CARDIOVASCULAR: Normal rate and regular rhythm without murmurs, gallops, or rubs. RESPIRATORY: Good respiratory efforts. Breath sounds equal and clear to auscultation bilaterally. GASTROINTESTINAL: Abdomen soft, non-tender, non-distended. Normal active bowel sounds MUSCULOSKELETAL: Extremities without cyanosis, or edema. NEURO: Alert & Oriented x4 to person, place, time, situation. Left hand donor floor technician strength was 4+ out of 5. The rest of the major muscle groups are all 5 out of 5. PSYCH: Appropriate mood and affect. Results Procedures completed during hospitalization: None Labs on day of discharge: Labs from last 24 hours 01/29/18 01/29/18 01/28/18 07:47 06:40 23:01 POC Glucose 95 85 91 Hemoglobin A1c 01/28/18 01/27/18 18:20 14:39 POC Glucose 88 Hemoglobin A1c 5.3 - Impressions ITS Impressions Chest X-Ray 01/27/18 12:23 CONCLUSION: No acute cardiopulmonary abnormality is identified. Head CT 01/27/18 12:23 CONCLUSION: Questionable 3 mm focal area of hemorrhage in the high right frontoparietal region, (best seen on image 27). Otherwise diffuse atrophy. Suggest follow-up noncontrasted CT in one day . Head MRI 01/27/18 14:20 CONCLUSION: 1. Linear infarct right MCA distribution as above without mass effect, hemorrhage or midline shift. 2. There is mild chronic white matter ischemic change. Head MRA 01/27/18 14:20 CONCLUSION: 1. 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 Neck MRA 01/27/18 14:20 CONCLUSION: 1. Mild plaque at the carotid bifurcations bilaterally with mild smooth narrowing at the carotid bulb. CTA carotids otherwise unremarkable. Both vertebral arteries are patent within the neck and similar size. Percent stenosis is calculated using the diameter of the stenotic region over the diameter of the normal distal internal carotid artery Cervical Spine MRI 01/27/18 15:26 CONCLUSION: 1. Degenerative disc disease at C5-6. No evidence of fracture or malalignment Discharge Plan - Discharge Disposition Patient Disposition: 01 Discharge Home - Discharge Condition Condition: Critical - Discharge Order Discharge Orders: Discharge Order (Routine); Ordered 01/29/18 Ordered By: Vani Thrasher - Physicians Team Primary Care Provider: Sachin Russo Attending Provider: Vani Thrasher Other Providers: Flora Polanco MD
[2018-01-29] MEDS ORDERED: Sodium Chloride 0.9% 2 ML Flush BID IV.FLUSH SCH (21:00)
== END 2018-01-29 10:47 | disposition home or self-care (01) ==
LOC: NEPE 12:13 → NEDA 18:40 → HIMC 20:05 → N05 01-28 19:03
PROVIDERS: ADMIT Family Medicine; ATTEND Family Medicine